=== PATIENT | male | born 1985 | race Caucasian/White ===

== ENCOUNTER 2016-11-08 14:36 | Emergency (ER) | payer BC ==
[2016-11-08] MEDS ORDERED: Ondansetron INJ* 2 MG/ML VIAL ONE (15:10)
[2016-11-08] MEDS ORDERED: LORazepam INJ* 2 MG/ML 1 ML VIAL IV PUSH ONE (15:28)
[2016-11-08] MEDS ORDERED: NS 0.9% 1000 ML* 1,000 ML IV ONE ×2 (15:30→17:01)
[2016-11-08 15:46] LABS: Hematocrit 44 % (42-52); Hemoglobin 14.8 g/dl (14.0-18.0); Mean Corpuscular HGB Conc 33 g/dl (31-36); Mean Corpuscular Hemoglobin 30 pg (27-31); Mean Corpuscular Volume 90 fL (80-94); Mean Platelet Volume 9 um3 (7.4-10.4); Red Blood Count 4.94 10^6/ul (4.0-5.4); Red Cell Distribution Width 13 % (10.5-15); White Blood Count 14.8 10^3/ul (3.5-10.8)
[2016-11-08] MEDS ORDERED: Ondansetron INJ* 2 MG/ML VIAL IV ONE ×2 (15:46→17:33)
[2016-11-08 16:00] LABS: ALT 16 U/L (7-52); AST 19 U/L (13-39); Albumin 4.9 g/dL (3.2-5.2); Alkaline Phosphatase 36 U/L (34-104); Anion Gap 10 mmol/L (2-11); BUN/Creatinine Ratio 14.4 (8-20); Blood Urea Nitrogen 15 mg/dL (6-24); C Reactive Protein 1.07 mg/L (< 5.00); CO2 Carbon Dioxide 25 mmol/L (22-32); Calcium 10.2 mg/dL (8.6-10.3); Chloride 108 mmol/L (101-111); EGFR African American 107.8 (>60); EGFR Non-African American 83.9 (>60); Globulin 2.6 g/dL (2-4); Glucose 125 mg/dL (70-100); Lipase < 10 U/L (11.0-82.0); Potassium 3.7 mmol/L (3.5-5.0); Sodium 143 mmol/L (133-145); Total Protein 7.5 g/dL (6.4-8.9)
[2016-11-08] MEDS ORDERED: Metoclopramide IV* 5 MG/ML 2 ML VIAL IV ONE (18:05)
[2016-11-08 19:02] VITALS: BP 134/78
--- NOTE | 2016-11-09 08:50 | ED ---
Ludwig Treadwell Alok, scribed for Fredy Gill MD on 11/08/16 at 1527 . GI/ HPI - HPI Summary HPI Summary: 31M presents to the ED with N/V since earlier today. Pt was given Zofran at [facility] [facility]. Pt states that he has had episodes like this before triggered by anxiety and notes anxiety currently due to stress with his business. Pt denies SOB, CP, cough, fever, or chills. PMHx includes h/o lyme disease and PSHx includes back surgery. - History of Current Complaint Chief Complaint: EDAbdPain Time Seen by Provider: 11/08/16 15:19 Stated Complaint: NAUSEA/VOMITING Hx Obtained From: Patient Onset/Duration: Started Hours Ago, Atraumatic, Still Present Timing: Constant Severity: Moderate Current Severity: Moderate Pain Intensity: 6 Associated Signs and Symptoms: Positive: Nausea, Vomiting, Other: - anxiety. Negative: Fever, Chills, Cough, Chest Pain Aggravating Factor(s): Activity - Stress at work Alleviating Factor(s): Medication - Zofran, ativan - Allergy/Home Medications Allergies/Adverse Reactions: Allergies Allergy/AdvReac Type Severity Reaction Status Date / Time Doxycycline Allergy Intermediate Rash Verified 11/08/16 15:57 PMH/Surg Hx/FS Hx/Imm Hx Endocrine/Hematology History: Denies: Hx Diabetes Cardiovascular History: Denies: Hx Congestive Heart Failure, Hx Hypertension, Hx Pacemaker/ICD History: Denies: Hx Renal Disease Sensory History: Denies: Hx Hearing Aid Psychiatric History: Denies: Hx Panic Disorder - Surgical History Surgery Procedure, Year, and Place: L4-5 [facility]-2005 Infectious Disease History: No Infectious Disease History: Denies: Traveled Outside the [place] in Last 30 Days - Family History Known Family History: Positive: Other - [place] - Social History Occupation: Employed Full-time Alcohol Use: None Substance Use Type: Reports: Marijuana Smoking Status (MU): Never Smoked Tobacco Review of Systems Negative: Fever, Chills Negative: Chest Pain Negative: Shortness Of Breath, Cough Positive: Vomiting, Nausea Positive: Anxious All Other Systems Reviewed And Are Negative: Yes Physical Exam - Summary Physical Exam Summary: VITAL SIGNS: Reviewed. GENERAL: Patient is a well-developed and nourished male who is lying comfortable in the stretcher. Patient is not in any acute respiratory distress. HEAD AND FACE: No signs of trauma. No ecchymosis, hematomas or skull depressions. No sinus tenderness. EYES: PERRLA, EOMI x 2, No injected conjunctiva, no nystagmus. EARS: Hearing grossly intact. Ear canals and tympanic membranes are within normal limits. MOUTH: Oropharynx within normal limits. NECK: Supple, trachea is midline, no adenopathy, no JVD, no carotid bruit, no c- spine tenderness, neck with full ROM. CHEST: Symmetric, no tenderness at palpation LUNGS: Clear to auscultation bilaterally. No wheezing or crackles. CVS: Regular rate and rhythm, S1 and S2 present, no murmurs or gallops appreciated. ABDOMEN: Soft, non-tender. No signs of distention. No rebound no guarding, and no masses palpated. Bowel sounds are normal. EXTREMITIES: FROM in all major joints, no edema, no cyanosis or clubbing. NEURO: Alert and oriented x 3. No acute neurological deficits. Speech is normal and follows commands. SKIN: Dry and warm Triage Information Reviewed: Yes Vital Signs On Initial Exam: Initial Vitals Temp Pulse Resp BP Pulse Ox 98.5 F 63 20 126/91 99 11/08/16 14:54 11/08/16 14:54 11/08/16 14:54 11/08/16 14:54 11/08/16 14:54 Vital Signs Reviewed: Yes Diagnostics - Vital Signs Vital Signs Temp Pulse Resp BP Pulse Ox 11/08/16 14:54 98.5 F 63 20 126/91 99 - Laboratory Lab Results: Lab Results 11/08/16 11/08/16 11/08/16 Range/Units 15:30 15:30 15:30 WBC 14.8 H (3.5-10.8) 10^3/ul RBC 4.94 (4.0-5.4) 10^6/ul Hgb 14.8 (14.0-18.0) g/dl Hct 44 (42-52) % MCV 90 (80-94) fL MCH 30 (27-31) pg MCHC 33 (31-36) g/dl RDW 13 (10.5-15) % Plt Count 214 (150-450) 10^3/ul MPV 9 (7.4-10.4) um3 Neut % (Auto) 91.2 H (38-83) % Lymph % (Auto) 6.4 L (25-47) % [place] % (Auto) 2.1 (1-9) % Eos % (Auto) 0.1 (0-6) % Baso % (Auto) 0.2 (0-2) % Absolute Neuts (auto) 13.5 H (1.5-7.7) 10^3/ul Absolute Lymphs (auto) 0.9 L (1.0-4.8) 10^3/ul Absolute Monos (auto) 0.3 (0-0.8) 10^3/ul Absolute Eos (auto) 0 (0-0.6) 10^3/ul Absolute Basos (auto) 0 (0-0.2) 10^3/ul Absolute Nucleated RBC 0 10^3/ul Nucleated RBC % 0 Sodium 143 (133-145) mmol/L Potassium 3.7 (3.5-5.0) mmol/L Chloride 108 (101-111) mmol/L Carbon Dioxide 25 (22-32) mmol/L Anion Gap 10 (2-11) mmol/L BUN 15 (6-24) mg/dL Creatinine 1.04 (0.67-1.17) mg/dL Est GFR ( Amer) 107.8 (>60) Est GFR (Non-Af Amer) 83.9 (>60) BUN/Creatinine Ratio 14.4 (8-20) Glucose 125 H (70-100) mg/dL Lactic Acid 1.8 (0.5-2.0) mmol/L Calcium 10.2 (8.6-10.3) mg/dL Total Bilirubin 0.60 (0.2-1.0) mg/dL AST 19 (13-39) U/L ALT 16 (7-52) U/L Alkaline Phosphatase 36 (34-104) U/L C-Reactive Protein 1.07 (< 5.00) mg/L Total Protein 7.5 (6.4-8.9) g/dL Albumin 4.9 (3.2-5.2) g/dL Globulin 2.6 (2-4) g/dL Albumin/Globulin Ratio 1.9 (1-3) Lipase < 10 L (11.0-82.0) U/L Result Diagrams: 11/08/16 15:30 11/08/16 15:30 Lab Statement: Any lab studies that have been ordered have been reviewed, and results considered in the medical decision making process. Re-Evaluation - Re-Evaluation First Eval Re-Evaluation Time: 18:05 Change: Unchanged Comment: Pt vomited once just now GIGU Course/Dx - Course Course Of Treatment: 31M presents to the ED with N/V since earlier today. Pt was given Zofran at [facility] [facility]. Pt states that he has had episodes like this before triggered by anxiety and notes anxiety currently due to stress with his business. Pt denies SOB, CP, cough, fever, or chills. PMHx includes h/o lyme disease and PSHx includes back surgery. Pt had one episode of vomiting in the ED, this was self induced by inserting his own fingers down his throat. Pt states that this was due to anxiety. Pt was given IV fluids for rehydration. Pt was given Reglan, Ativan, and Zofran. Pt was here for 4 hours and symptoms have improved. Pt will be discharged home with Zofran and Ativan. Decided against any imaging since pt had no abd pain or other complaints. - Diagnoses Differential Diagnoses - Male: Gastritis, Gastroenteritis (Bacterial), Vomiting Provider Diagnoses: Anxiety, Nausea, Vomiting Discharge - Discharge Plan Condition: Stable Disposition: HOME Prescriptions: Ondansetron TAB* [Zofran 4 MG Tab*] 4 mg PO Q6H PRN #10 tab PRN Reason: Vomiting hydrOXYzine HCL TAB* [Atarax 25 MG TAB*] 25 mg PO TID PRN #20 tab PRN Reason: Anxiety Patient Education Materials: Anxiety (ED), Acute Nausea and Vomiting (ED) Referrals: Sahara Suarez MD [Primary Care Provider] - The documentation as recorded by the Ludwig phoenix Alok accurately reflects the service I personally performed and the decisions made by , Fredy Gill MD.
== END 2016-11-08 19:10 | disposition home or self-care (01) ==
LOC: ED 14:36
DX: F41.9 Anxiety disorder, unspecified (principal); R11.2 Nausea with vomiting, unspecified
CPT/HCPCS: 36415; 80053; 83605; 83690; 85025; 86140; 96374; 96375; 99283; J2060; J2405

== ENCOUNTER 2016-11-08 23:19 | Emergency (ER) | payer BC ==
[2016-11-08 23:25] VITALS: BP 156/77
[2016-11-08] MEDS ORDERED: NS 0.9% 1000 ML* 1,000 ML IV ONE (23:45)
[2016-11-08] MEDS ORDERED: LORazepam INJ* 2 MG/ML 1 ML VIAL IV PUSH ONE (23:46)
[2016-11-08] MEDS ORDERED: Metoclopramide IV* 5 MG/ML 2 ML VIAL IV SLOW PU ONE (23:46)
--- NOTE | 2016-11-09 00:57 | ED ---
GI/ HPI - HPI Summary HPI Summary: 31M presents with nausea and vomiting today. He was seen here already and has labs drawn. He return as he took Benadryl, odt zofran at home without relief. He has history of intractable vomiting. He does stick his fingers down his throat to vomit. He denies doing this at this time. He states he made it home and started to vomit again. He denies any dysuria, hematuria, flank pain, frequency, urgency, diarrhea, constipation. He has had these episodes in the past. He was scoped in the past - History of Current Complaint Chief Complaint: EDNauseaVomitDiarrh Time Seen by Provider: 11/08/16 23:29 Stated Complaint: VOMITING Pain Intensity: 6 - Allergy/Home Medications Allergies/Adverse Reactions: Allergies Allergy/AdvReac Type Severity Reaction Status Date / Time Doxycycline Allergy Intermediate Rash Verified 11/08/16 15:57 PMH/Surg Hx/FS Hx/Imm Hx Endocrine/Hematology History: Denies: Hx Diabetes Cardiovascular History: Denies: Hx Congestive Heart Failure, Hx Hypertension, Hx Pacemaker/ICD History: Denies: Hx Renal Disease Sensory History: Denies: Hx Hearing Aid Psychiatric History: Denies: Hx Panic Disorder - Surgical History Surgery Procedure, Year, and Place: L4-5 [facility]-2005 Infectious Disease History: No Infectious Disease History: Denies: Traveled Outside the [place] in Last 30 Days - Social History Alcohol Use: None Substance Use Type: Reports: Marijuana Smoking Status (MU): Never Smoked Tobacco Review of Systems Negative: Fever Negative: Chest Pain Negative: Shortness Of Breath Positive: Vomiting, Nausea All Other Systems Reviewed And Are Negative: Yes Physical Exam Triage Information Reviewed: Yes Vital Signs On Initial Exam: Initial Vitals Temp Pulse Resp Pulse Ox 97.8 F 66 17 97 11/08/16 23:22 11/08/16 23:22 11/08/16 23:22 11/08/16 23:22 Vital Signs Reviewed: Yes Appearance: Positive: Well-Appearing Skin: Positive: Warm, Dry Head/Face: Positive: Normal Head/Face Inspection Eyes: Positive: Normal, Conjunctiva Clear ENT: Positive: Normal ENT inspection, Pharynx normal, TMs normal Respiratory/Lung Sounds: Positive: Clear to Auscultation, Breath Sounds Present Cardiovascular: Positive: Normal, RRR Abdomen Description: Positive: Nontender, Soft Bowel Sounds: Positive: Present - [place] Coma Scale Coma Scale Total: 15 Diagnostics - Vital Signs Vital Signs Temp Pulse Resp BP Pulse Ox 11/08/16 23:58 16 11/08/16 23:24 97.8 F 80 17 156/77 100 11/08/16 23:22 97.8 F 66 17 97 - Laboratory Lab Statement: Any lab studies that have been ordered have been reviewed, and results considered in the medical decision making process. Re-Evaluation - Re-Evaluation First Eval Re-Evaluation Time: 00:15 Change: Improved Comment: feeling a bit better but still nauseous Second Eval Re-Evaluation Time: 03:01 Change: Improved Comment: sleeping in room, no vomiting for 4 hours while in ED, ordered second dose of ativan but not given GIGU Course/Dx - Course Course Of Treatment: 31M presents with intractable vomiting today. He was seen here earlier and vomiting was controlled at time of d/c went home and vomiting returned. took ODT zofran and bendaryl without relief. has history of sticking fingers down throat to incite vomiting. labs done early and wbc 15 likely from vomiting. on exam nontender abdomen so do not see need to scan. gave reglan and ativan and patient feel asleep. patient did not vomit while in ED and was only hiccup which resolved after nap. told to follow up with primary. discussed may need to see GI. also discussed that is nausous every morning so should try OTC acid suppressor to see if GERD related? patient understands and agrees with plan - Diagnoses Differential Diagnoses - Male: Gastritis, Gastroenteritis (Bacterial), Vomiting Provider Diagnoses: Vomiting Discharge - Discharge Plan Condition: Good Disposition: HOME Patient Education Materials: Acute Nausea and Vomiting (ED) Referrals: Sahara Suarez MD [Primary Care Provider] - Additional Instructions: Take up to two tablets every 6 hours for nausea of zofran Try OTC acid suppressor such as Pepcid or Prilosec for a week to see if helps morning nausea Follow up with GI Follow up with primary within 5 days Return to ED if develop any new or worsening symptoms
[2016-11-09] MEDS ORDERED: LORazepam INJ* 2 MG/ML 1 ML VIAL IV PUSH ONE (01:20)
[2016-11-09] MEDS ORDERED: Ketorolac INJ* 30 MG/ML 1 ML VIAL IV PUSH ONE (01:20)
[2016-11-09] MEDS ORDERED: PROCHLORPERAZINE INJ 5 MG/ML 2 ML VIAL IM ONE (01:20)
[2016-11-09] MEDS ORDERED: NS 0.9% 1000 ML* 1,000 ML IV ONE (01:42)
[2016-11-09] MEDS ORDERED: LORazepam TAB(*) 1 MG PO ONE (02:57)
== END 2016-11-09 03:46 | disposition home or self-care (01) ==
LOC: ED 23:19
DX: R11.10 Vomiting, unspecified (principal); Z88.1 Allergy status to other antibiotic agents; F12.90 Cannabis use, unspecified, uncomplicated
CPT/HCPCS: 96361; 96372; 96374; 96375; 96376; 99282; A9270-GY; J2060

== ENCOUNTER 2016-11-10 14:43 | Emergency (ER) | payer BC ==
[2016-11-10 15:47] LABS: Hematocrit 40 % (42-52); Hemoglobin 13.7 g/dl (14.0-18.0); Mean Corpuscular HGB Conc 34 g/dl (31-36); Mean Corpuscular Hemoglobin 31 pg (27-31); Mean Corpuscular Volume 90 fL (80-94); Mean Platelet Volume 9 um3 (7.4-10.4); Red Blood Count 4.48 10^6/ul (4.0-5.4); Red Cell Distribution Width 13 % (10.5-15); White Blood Count 9.4 10^3/ul (3.5-10.8)
[2016-11-10 16:02] LABS: Albumin 4.6 g/dL (3.2-5.2); BUN/Creatinine Ratio 12.8 (8-20); Calcium 9.4 mg/dL (8.6-10.3); EGFR African American 121.2 (>60); EGFR Non-African American 94.2 (>60); Globulin 2.5 g/dL (2-4); Potassium 3.4 mmol/L (3.5-5.0); Total Bilirubin 0.7 mg/dL (0.2-1.0); Total Protein 7.1 g/dL (6.4-8.9)
[2016-11-10] MEDS ORDERED: NS 0.9% 1000 ML* 1,000 ML IV ONE (17:08)
[2016-11-10] MEDS ORDERED: Metoclopramide IV* 5 MG/ML 2 ML VIAL IV ONE (17:08)
[2016-11-10] MEDS ORDERED: LORazepam INJ* 2 MG/ML 1 ML VIAL IV ONE ×2 (17:08→19:27)
[2016-11-10] MEDS ORDERED: LORazepam INJ* 2 MG/ML 1 ML VIAL ONE (19:38)
[2016-11-10 19:52] VITALS: BP 143/81
--- NOTE | 2016-11-10 21:40 | ED ---
Rishi Treadwell Salem, scribed for Shabbir Proctor MD on 11/10/16 at 1717 . GI/ HPI - HPI Summary HPI Summary: Patient is a 31 y/o M who presents to the ED with vomiting since the last 2 days. He states that he has a hx of vomiting and stomach spasms (occurring every 6 months); however, the most recent one was 2.5 years ago. Pt denies abd pain, but states that abd is uncomfortable. Pt was seen in the ED 2 days ago and was DCd after receiving Zofran and Pepcid. Pt returned that night and was DCd the following morning. Family members state that pt left better when he was DCd yesterday. - History of Current Complaint Chief Complaint: EDAbdPain Time Seen by Provider: 11/10/16 16:54 Stated Complaint: NAUSEA & VOMITING/HERE ON THURSDAY Hx Obtained From: Patient Onset/Duration: Started Days Ago, Atraumatic, Still Present Timing: Intermittent Severity: Moderate Current Severity: Moderate Pain Intensity: 6 Location of Pain: Diffuse Associated Signs and Symptoms: Positive: Vomiting Aggravating Factor(s): Nothing Alleviating Factor(s): Nothing - Allergy/Home Medications Allergies/Adverse Reactions: Allergies Allergy/AdvReac Type Severity Reaction Status Date / Time Doxycycline Allergy Intermediate Rash Verified 11/08/16 15:57 PMH/Surg Hx/FS Hx/Imm Hx Endocrine/Hematology History: Denies: Hx Diabetes Cardiovascular History: Denies: Hx Congestive Heart Failure, Hx Hypertension, Hx Pacemaker/ICD History: Denies: Hx Renal Disease Sensory History: Denies: Hx Hearing Aid Psychiatric History: Denies: Hx Panic Disorder - Surgical History Surgery Procedure, Year, and Place: L4-5 [facility]-2005 Infectious Disease History: No Infectious Disease History: Denies: Traveled Outside the [place] in Last 30 Days - Family History Known Family History: Positive: Cardiac Disease - Social History Alcohol Use: None Hx Substance Use: Yes Substance Use Type: Reports: Marijuana Hx Tobacco Use: No Smoking Status (MU): Never Smoked Tobacco Review of Systems Negative: Fever Positive: Vomiting, Other - Uncomfortable abd. . Negative: Abdominal Pain All Other Systems Reviewed And Are Negative: Yes Physical Exam Triage Information Reviewed: Yes Vital Signs On Initial Exam: Initial Vitals Temp Pulse Resp BP Pulse Ox 97.4 F 65 17 153/94 100 11/10/16 14:47 11/10/16 14:47 11/10/16 14:47 11/10/16 14:47 11/10/16 14:47 Vital Signs Reviewed: Yes Appearance: Positive: Well-Appearing, No Pain Distress Skin: Positive: Warm, Skin Color Reflects Adequate Perfusion, Dry Head/Face: Positive: Normal Head/Face Inspection Eyes: Positive: Normal Neck: Positive: Supple, Nontender Respiratory/Lung Sounds: Positive: Clear to Auscultation, Breath Sounds Present Cardiovascular: Positive: RRR Abdomen Description: Positive: Nontender, Soft Bowel Sounds: Positive: Present Musculoskeletal: Positive: Normal Neurological: Positive: Normal Psychiatric: Positive: Normal, Affect/Mood Appropriate - [place] Coma Scale Coma Scale Total: 15 Diagnostics - Vital Signs Vital Signs Temp Pulse Resp BP Pulse Ox 11/10/16 16:44 98.2 F 72 20 164/93 98 11/10/16 16:43 164/93 11/10/16 14:47 97.4 F 65 17 153/94 100 - Laboratory Lab Results: Lab Results 11/10/16 11/10/16 11/10/16 Range/Units 15:36 15:36 15:36 WBC 9.4 (3.5-10.8) 10^3/ul RBC 4.48 (4.0-5.4) 10^6/ul Hgb 13.7 L (14.0-18.0) g/dl Hct 40 L (42-52) % MCV 90 (80-94) fL MCH 31 (27-31) pg MCHC 34 (31-36) g/dl RDW 13 (10.5-15) % Plt Count 184 (150-450) 10^3/ul MPV 9 (7.4-10.4) um3 Neut % (Auto) 78.9 (38-83) % Lymph % (Auto) 15.0 L (25-47) % [place] % (Auto) 5.0 (1-9) % Eos % (Auto) 0.2 (0-6) % Baso % (Auto) 0.9 (0-2) % Absolute Neuts (auto) 7.4 (1.5-7.7) 10^3/ul Absolute Lymphs (auto) 1.4 (1.0-4.8) 10^3/ul Absolute Monos (auto) 0.5 (0-0.8) 10^3/ul Absolute Eos (auto) 0 (0-0.6) 10^3/ul Absolute Basos (auto) 0.1 (0-0.2) 10^3/ul Absolute Nucleated RBC 0.01 10^3/ul Nucleated RBC % 0.1 Sodium 141 (133-145) mmol/L Potassium 3.4 L (3.5-5.0) mmol/L Chloride 109 (101-111) mmol/L Carbon Dioxide 25 (22-32) mmol/L Anion Gap 7 (2-11) mmol/L BUN 12 (6-24) mg/dL Creatinine 0.94 (0.67-1.17) mg/dL Est GFR ( Amer) 121.2 (>60) Est GFR (Non-Af Amer) 94.2 (>60) BUN/Creatinine Ratio 12.8 (8-20) Glucose 105 H (70-100) mg/dL Lactic Acid 1.8 (0.5-2.0) mmol/L Calcium 9.4 (8.6-10.3) mg/dL Total Bilirubin 0.70 (0.2-1.0) mg/dL AST 18 (13-39) U/L ALT 16 (7-52) U/L Alkaline Phosphatase 35 (34-104) U/L Total Protein 7.1 (6.4-8.9) g/dL Albumin 4.6 (3.2-5.2) g/dL Globulin 2.5 (2-4) g/dL Albumin/Globulin Ratio 1.8 (1-3) Result Diagrams: 11/10/16 15:36 11/10/16 15:36 Lab Statement: Any lab studies that have been ordered have been reviewed, and results considered in the medical decision making process. Re-Evaluation - Re-Evaluation First Eval Re-Evaluation Time: 19:06 Comment: Discussed plan. GIGU Course/Dx - Course Course Of Treatment: Mr. Coffman returns with a continuation of his nausea and vomiting. He had a lot of problems with this a few years ago but not for the last 2 1/2 years until 4-5 days ago and this is now his third visit. He believes he was treated with IV antibiotics the first time for lyme and that that is waht ultimately worked. He is also a marijuana user. I treated him symptomatically and referred him for F/U. - Diagnoses Provider Diagnoses: Nausea & vomiting Discharge - Discharge Plan Condition: Stable Disposition: HOME Prescriptions: LORazepam TAB(*) [Ativan TAB(*)] 1 mg PO Q6H PRN #20 tab MDD 4 PRN Reason: Pain Metoclopramide TAB* [Reglan TAB*] 10 mg PO Q6H #20 tab Patient Education Materials: Acute Nausea and Vomiting (ED) Referrals: Sahara Suarez MD [Primary Care Provider] - Additional Instructions: Please follow up with your primary care provider. The documentation as recorded by the Rishi phoenix Salem accurately reflects the service I personally performed and the decisions made by me, Shabbir Proctor MD.
== END 2016-11-10 19:53 | disposition home or self-care (01) ==
LOC: ED 14:43
DX: R11.2 Nausea with vomiting, unspecified (principal); Z88.1 Allergy status to other antibiotic agents; F12.90 Cannabis use, unspecified, uncomplicated
CPT/HCPCS: 36415; 80053; 83605; 85025; 86617; 86618; 96361; 96374; 96375; 96376; 99283; J2060

== ENCOUNTER 2017-05-30 10:26 | Emergency (ER) | payer BC ==
[2017-05-30] MEDS ORDERED: LORazepam TAB(*) 1 MG PO ONE (11:13)
[2017-05-30] MEDS ORDERED: NS 0.9% 1000 ML* 1,000 ML IV ONE (11:13)
--- NOTE | 2017-05-30 11:16 | ED ---
Nausea/Vomiting/Diarrhea HPI - HPI Summary HPI Summary: 32 male presents to the ED with vomiting since 7am today. He states that he has a hx of vomiting and stomach spasms (occurring every 6 months/1 year).Pt denies abd pain, but states that stomach is uncomfortable from vomiting, as it usually is when these episodes occur. Patient states ativan and reglan typically help him. He took zofran, reglan and hydroxyzine and compazine suppository this morning however did not have relief. Believes he vomited the medications up shortly after taking them. Denies any other pain or symptoms. No blood in vomit. Normal bowel movement and no urinary complaints. No fever/ chills. No other PMHx. Has been seen by GI for these symptoms of cyclic vomiting syndrome, in the past multiple times, given medications to take at home. Admits to smoking marijuana. Last use was last night. No other drug or alcohol use. No other complaints at this time. Last vomited 30 minutes ago with a total of ~ 6 episodes of vomiting since 0700. - History of Current Complaint Chief Complaint: EDNauseaVomitDiarrh Stated Complaint: n,v Time Seen by Provider: 05/30/17 11:11 Hx Obtained From: Patient Onset/Duration: Sudden Onset, Lasting Hours, Still Present Timing: Intermittent Episodes Lasting: - 6 episodes of vomiting Severity Initially: Mild Severity Currently: Mild Pain Intensity: 6 Pain Scale Used: 0-10 Numeric - with and from vomiting Location: Epigastric - stomach area LUQ Character: Cramping, Colicy Aggravating Factor(s): Nothing Alleviating Factor(s): Nothing Nausea/Vomiting Presence: Nauseated, Vomiting Vomiting Frequency: Every 15-60 minutes Nausea/Vomiting Duration: 0-12 hours Vomiting Characteristics: Retching Diarrhea Presence: No - Allergies/Home Medications Allergies/Adverse Reactions: Allergies Allergy/AdvReac Type Severity Reaction Status Date / Time Doxycycline Allergy Intermediate Rash Verified 11/08/16 15:57 PMH/Surg Hx/FS Hx/Imm Hx Endocrine/Hematology History: Denies: Hx Diabetes Cardiovascular History: Denies: Hx Congestive Heart Failure, Hx Hypertension, Hx Pacemaker/ICD History: Denies: Hx Renal Disease Sensory History: Denies: Hx Hearing Aid Psychiatric History: Denies: Hx Panic Disorder - Surgical History Surgery Procedure, Year, and Place: L4-5 [facility]-2006 - Immunization History Immunizations Up to Date: Yes Infectious Disease History: No Infectious Disease History: Denies: Traveled Outside the [place] in Last 30 Days - Family History Known Family History: Positive: Cardiac Disease - Social History Alcohol Use: None Hx Substance Use: Yes Substance Use Type: Reports: Marijuana Hx Tobacco Use: No Smoking Status (MU): Never Smoked Tobacco Review of Systems Constitutional: Negative Cardiovascular: Negative Respiratory: Negative Positive: Abdominal Pain, Vomiting, Nausea Neurological: Negative All Other Systems Reviewed And Are Negative: Yes Physical Exam Triage Information Reviewed: Yes Vital Signs On Initial Exam: Initial Vitals Temp Pulse Resp BP Pulse Ox 98.3 F 74 18 152/104 100 05/30/17 10:30 05/30/17 10:30 05/30/17 10:30 05/30/17 10:30 05/30/17 10:30 elevated BP noted Vital Signs Reviewed: Yes Appearance: Positive: No Pain Distress, Well-Nourished, Ill-Appearing - nauseated Skin: Positive: Warm, Skin Color Reflects Adequate Perfusion, Dry. Negative: Cold, Cyanosis @, Jaundiced, Pale, Erythema @ Head/Face: Positive: Scalp Eyes: Positive: Normal, EOMI, TRACEY, Conjunctiva Clear ENT: Positive: Hearing grossly normal, Pharynx normal Neck: Positive: Supple, Nontender Respiratory/Lung Sounds: Positive: Clear to Auscultation, Breath Sounds Present. Negative: Rales, Rhonchi, Wheezes Cardiovascular: Positive: Normal, RRR, Pulses are Symmetrical in both Upper and Lower Extremities. Negative: Murmur, Rub Abdomen Description: Positive: Nontender, No Organomegaly, Soft. Negative: Bruit, CVA Tenderness (R), CVA Tenderness (L), Distended, Guarding, McBurney's Point Tenderness, Peritoneal Signs, Pulsatile Mass Bowel Sounds: Positive: Present Musculoskeletal: Positive: Normal, Strength/ROM Intact Neurological: Positive: Normal, Sensory/Motor Intact, Alert, Oriented to Person Place, Time, CN Intact II-III, Reflexes Intact, NV Bundle Intact Distally, Normal Gait Diagnostics - Vital Signs Vital Signs Temp Pulse Resp BP Pulse Ox 05/30/17 10:30 98.3 F 74 18 152/104 100 - Laboratory Result Diagrams: 05/30/17 12:54 05/30/17 12:54 Lab Statement: Any lab studies that have been ordered have been reviewed, and results considered in the medical decision making process. Re-Evaluation - Re-Evaluation Second Eval Re-Evaluation Time: 14:00 Change: Improved - is feeling better after medication administered, ready to be d/c. will send home with meds. patient agrees and understands. no concern for other etiology at this time. normal labs First Eval Re-Evaluation Time: 13:00 Change: Unchanged - still not feeling well after first doses of medication Third Eval Re-Evaluation Time: 13:30 Change: Improved - ready to be d/c feeling better, able to tolerate po CTA and RRR on reeval at dispo Naus/Vom/Diarrhea Course/Dx - Course Course Of Treatment: basic labs obtained, unremarkable. given reglan, fluids, ativan did not have relief. given zofran and pepcid additionally and had relief. given last dose of ativan prior to discharge. patient will be sent home with medications to help if symptoms persist/return. no concern for other etiology at this time. aware of worsening signs and symptoms to watch out for. Follow up with PCP/GI. Increase fluid intake when able to keep foods down to prevent dehydration. - Differential Dx/Diagnosis Differential Diagnoses - Male: Vomiting, Other - intractable vomiting, cyclic vomiting syndrome Provider Diagnoses: cyclic vomiting syndrome Condition At Discharge: Stable Discharge - Discharge Plan Condition: Stable Disposition: HOME Prescriptions: LORazepam TAB(*) [Ativan 0.5 MG TAB (*)] 0.5 mg PO Q6H PRN #15 tab MDD 3 PRN Reason: Nausea Metoclopramide TAB* [Reglan TAB*] 5 mg PO Q6H PRN #15 tab PRN Reason: Nausea Ondansetron ODT TAB* [Zofran 4 MG Odt TAB*] 4 mg PO Q6H PRN #15 tab.odt PRN Reason: Nausea Patient Education Materials: Acute Nausea and Vomiting (ED) Referrals: Sahara Suarez MD [Primary Care Provider] - Additional Instructions: Take prescribed medication as needed for vomiting and nausea. Follow up with PCP and GI. Any new or worsening symptoms please seek medical attention promptly, as discussed. Increase fluid intake when able to keep down fluids. If unable for long period of time please seek medical attention.
[2017-05-30] MEDS ORDERED: LORazepam INJ* 2 MG/ML 1 ML VIAL IV PUSH ONE ×2 (11:31→14:14)
[2017-05-30] MEDS ORDERED: LORazepam INJ* 2 MG/ML 1 ML VIAL ONE (11:33)
[2017-05-30] MEDS ORDERED: Metoclopramide IV* 5 MG/ML 2 ML VIAL IV ONE (11:52)
[2017-05-30] MEDS ORDERED: Famotidine IV* 10 MG/ML 2 ML (20 mg) IV SLOW PU ONE (12:58)
[2017-05-30] MEDS ORDERED: Ondansetron INJ* 2 MG/ML VIAL IV ONE (12:58)
[2017-05-30 13:09] LABS: Hematocrit 40 % (42-52); Hemoglobin 13.8 g/dl (14.0-18.0); Mean Corpuscular HGB Conc 34 g/dl (31-36); Mean Corpuscular Hemoglobin 31 pg (27-31); Mean Corpuscular Volume 90 fL (80-94); Mean Platelet Volume 8 um3 (7.4-10.4); Platelet Count 172 10^3/ul (150-450); Red Blood Count 4.47 10^6/ul (4.0-5.4); Red Cell Distribution Width 13 % (10.5-15); White Blood Count 10.9 10^3/ul (3.5-10.8)
[2017-05-30 13:22] LABS: EGFR Non-African American 91.4 (>60)
[2017-05-30 15:05] VITALS: BP 154/80
== END 2017-05-30 15:24 | disposition home or self-care (01) ==
LOC: ED 10:26
DX: G43.A0 Cyclical vomiting, in migraine, not intractable (principal); Z88.3 Allergy status to other anti-infective agents
CPT/HCPCS: 36415; 80053; 85027; 86140; 87502; 96361; 96374; 96375; 96376; 99283; A9270-GY; J2060; J2405; J2765

== ENCOUNTER 2017-12-31 15:28 | Emergency (ER) | payer BC ==
[2017-12-31] MEDS ORDERED: NS 0.9% 1000 ML* 1,000 ML IV ONE ×2 (15:43→17:29)
[2017-12-31] MEDS ORDERED: Ondansetron INJ* 2 MG/ML VIAL IV ONE (15:43)
[2017-12-31] MEDS ORDERED: LORazepam INJ* 2 MG/ML 1 ML VIAL IV PUSH ONE ×3 (15:44→20:17)
[2017-12-31] MEDS ORDERED: Famotidine IV* 10 MG/ML 2 ML (20 mg) IV SLOW PU ONE (15:45)
[2017-12-31 16:20] LABS: ABS Basophils 0 10^3/ul (0-0.2); ABS Eosinophils 0 10^3/ul (0-0.6); ABS Lymphocytes 1.1 10^3/ul (1.0-4.8); ABS Monocytes 0.3 10^3/ul (0-0.8); ABS Neutrophils 12.5 10^3/ul (1.5-7.7); ABS Nucleated RBC 0 10^3/ul; Eosinophil % 0.2 % (0-6); Hematocrit 42 % (42-52); Hemoglobin 14.7 g/dl (14.0-18.0); Lymphocyte % 8.1 % (25-47); Mean Corpuscular HGB Conc 35 g/dl (31-36); Mean Corpuscular Hemoglobin 31 pg (27-31); Mean Corpuscular Volume 89 fL (80-94); Mean Platelet Volume 8.3 um3 (7.4-10.4); Nucleated Red Blood Cells % 0.1; Platelet Count 196 10^3/ul (150-450); Red Blood Count 4.68 10^6/ul (4.00-5.40); Red Cell Distribution Width 13 % (10.5-15); White Blood Count 14.1 10^3/ul (3.5-10.8)
[2017-12-31 16:36] LABS: EGFR Non-African American 97.2 (>60)
[2017-12-31] MEDS ORDERED: Metoclopramide IV* 5 MG/ML 2 ML VIAL IV ONE (17:28)
--- NOTE | 2017-12-31 17:28 | ED ---
Nausea/Vomiting/Diarrhea HPI - HPI Summary HPI Summary: patient is a 32-year-old male presenting to the ED with acute onset severe nausea and vomiting. He states this happens approximately every 6 months to one year. He is given Zofran, Ativan and fluids and usually resolves. He endorses sweats and chills, denies any fevers. He states he is otherwise healthy other than his nausea and vomiting. Endorses marijuana use. Symptoms began approximately 4 hours ago and he endorses 10 times emesis. - History of Current Complaint Chief Complaint: EDNauseaVomitDiarrh Stated Complaint: NAUSEA/VOMITING Time Seen by Provider: 12/31/17 15:39 Hx Obtained From: Patient Onset/Duration: Sudden Onset Timing: Constant Severity Initially: Moderate Severity Currently: Moderate Pain Intensity: 6 Pain Scale Used: 0-10 Numeric Aggravating Factor(s): Nothing Alleviating Factor(s): Nothing Vomiting Frequency: Every 15-60 minutes Nausea/Vomiting Duration: 0-12 hours Vomiting Characteristics: Retching - Allergies/Home Medications Allergies/Adverse Reactions: Allergies Allergy/AdvReac Type Severity Reaction Status Date / Time doxycycline Allergy Mild Rash Verified 12/31/17 15:33 PMH/Surg Hx/FS Hx/Imm Hx Previously Healthy: Yes Endocrine/Hematology History: Denies: Hx Diabetes Cardiovascular History: Denies: Hx Congestive Heart Failure, Hx Hypertension, Hx Pacemaker/ICD History: Denies: Hx Renal Disease Sensory History: Denies: Hx Hearing Aid Psychiatric History: Denies: Hx Panic Disorder - Surgical History Surgery Procedure, Year, and Place: L4-5 [facility]-2005 - Immunization History Hx Pertussis Vaccination: No Immunizations Up to Date: Unable to Obtain/Confirm Infectious Disease History: No Infectious Disease History: Denies: Traveled Outside the [place] in Last 30 Days - Family History Known Family History: Positive: Cardiac Disease - Social History Occupation: Employed Full-time Lives: With Family Alcohol Use: None Hx Substance Use: Yes Substance Use Type: Reports: Marijuana Hx Tobacco Use: No Smoking Status (MU): Never Smoked Tobacco Review of Systems Positive: Chills, Skin Diaphoresis. Negative: Fever Negative: Palpitations, Chest Pain Positive: Abdominal Pain, Vomiting, Nausea. Negative: Diarrhea Genitourinary: Negative Positive: no symptoms reported, see HPI Negative: Arthralgia, Myalgia Negative: Headache, Weakness Positive: Anxious All Other Systems Reviewed And Are Negative: Yes Physical Exam Triage Information Reviewed: Yes Vital Signs On Initial Exam: Initial Vitals Temp Pulse Resp BP Pulse Ox 95.9 F 70 16 134/88 97 12/31/17 15:30 12/31/17 15:30 12/31/17 15:30 12/31/17 15:30 12/31/17 15:30 Vital Signs Reviewed: Yes Appearance: Positive: Ill-Appearing Skin: Positive: Diaphoretic Head/Face: Positive: Normal Head/Face Inspection Eyes: Positive: EOMI, TRACEY Neck: Positive: Supple, No Lymphadenopathy Respiratory/Lung Sounds: Positive: Clear to Auscultation, Breath Sounds Present Cardiovascular: Positive: RRR, Pulses are Symmetrical in both Upper and Lower Extremities Musculoskeletal: Positive: Normal, Strength/ROM Intact Neurological: Positive: Speech Normal Psychiatric: Positive: Anxious AVPU Assessment: Alert Diagnostics - Vital Signs Vital Signs Temp Pulse Resp BP Pulse Ox 12/31/17 16:19 22 12/31/17 15:49 97.5 F 12/31/17 15:30 95.9 F 70 16 134/88 97 - Laboratory Lab Results: Lab Results 12/31/17 12/31/17 12/31/17 Range/Units 16:12 16:12 16:12 WBC 14.1 H (3.5-10.8) 10^3/ul RBC 4.68 (4.00-5.40) 10^6/ul Hgb 14.7 (14.0-18.0) g/dl Hct 42 (42-52) % MCV 89 (80-94) fL MCH 31 (27-31) pg MCHC 35 (31-36) g/dl RDW 13 (10.5-15) % Plt Count 196 (150-450) 10^3/ul MPV 8.3 (7.4-10.4) um3 Neut % (Auto) 89.2 H (38-83) % Lymph % (Auto) 8.1 L (25-47) % Fannin % (Auto) 2.2 (0-7) % Eos % (Auto) 0.2 (0-6) % Baso % (Auto) 0.3 (0-2) % Absolute Neuts (auto) 12.5 H (1.5-7.7) 10^3/ul Absolute Lymphs (auto) 1.1 (1.0-4.8) 10^3/ul Absolute Monos (auto) 0.3 (0-0.8) 10^3/ul Absolute Eos (auto) 0 (0-0.6) 10^3/ul Absolute Basos (auto) 0 (0-0.2) 10^3/ul Absolute Nucleated RBC 0 10^3/ul Nucleated RBC % 0.1 ESR 13 (0-14) mm/Hr Sodium 142 (135-145) mmol/L Potassium 3.7 (3.5-5.0) mmol/L Chloride 113 H (101-111) mmol/L Carbon Dioxide 20 L (22-32) mmol/L Anion Gap 9 (2-11) mmol/L BUN 23 (6-24) mg/dL Creatinine 0.91 (0.67-1.17) mg/dL Est GFR ( Amer) 117.6 (>60) Est GFR (Non-Af Amer) 97.2 (>60) BUN/Creatinine Ratio 25.3 H (8-20) Glucose 141 H (70-100) mg/dL Lactic Acid 1.4 (0.5-2.0) mmol/L Calcium 9.8 (8.6-10.3) mg/dL Total Bilirubin 0.50 (0.2-1.0) mg/dL AST 18 (13-39) U/L ALT 20 (7-52) U/L Alkaline Phosphatase 39 (34-104) U/L C-Reactive Protein < 1.00 (<8.01) mg/L Total Protein 7.2 (6.4-8.9) g/dL Albumin 4.7 (3.2-5.2) g/dL Globulin 2.5 (2-4) g/dL Albumin/Globulin Ratio 1.9 (1-3) Result Diagrams: 12/31/17 16:12 12/31/17 16:12 Lab Statement: Any lab studies that have been ordered have been reviewed, and results considered in the medical decision making process. Re-Evaluation - Re-Evaluation First Eval Change: Unchanged - continues to have n/v Naus/Vom/Diarrhea Course/Dx - Course Course Of Treatment: Patient is evaluated for acute nausea and vomiting which began approximate 4 hours ago. He is given Zofran, Ativan and fluids without much relief. Reglan and another 1mg Ativan is given along with 1 L fluids. - Differential Dx/Diagnosis Provider Diagnoses: Cyclical vomiting Discharge - Sign-Out/Discharge Documenting (check all that apply): Sign-Out Patient Signing out patient TO: Alesha Ann - pending improvement of symptoms - Discharge Plan Condition: Stable Referrals: Sahara Suarez MD [Primary Care Provider] - - Billing Disposition and Condition Condition: STABLE
[2017-12-31] MEDS ORDERED: PROCHLORPERAZINE INJ 5 MG/ML 2 ML VIAL IV ONE (19:14)
[2017-12-31 20:40] VITALS: BP 137/78
--- NOTE | 2017-12-31 21:26 | PN ---
Progress Note - Progress Note Date of Service: 12/31/17 Note: Patient was a sign out fromAnisha at shift change. Patient was given medication just prior to shift change and was waiting for symptom improvement. Patient given another dose of medication and symptoms had improved after a couple hours. No new symptoms or other concerns requiring further workup at this time. Patient was ready to be discharged home. Discharge: Home Condition: Improved Diagnosis: Cyclic vomiting syndrome Discharge instructions: Follow-up with primary care provider. Continue medications as prescribed at home as needed. Increase fluids. Aware worsening signs and symptoms watch out for.
== END 2017-12-31 20:39 | disposition home or self-care (01) ==
LOC: ED 15:28
DX: G43.A0 Cyclical vomiting, in migraine, not intractable (principal); Z88.3 Allergy status to other anti-infective agents
CPT/HCPCS: 36415; 80053; 83605; 85025; 85652; 86140; 96361; 96374; 96375; 96376; 99282; J0780; J2060; J2405; J2765

== ENCOUNTER 2019-08-02 05:09 | Observation (INO) | payer BC ==
[~2019-08-02 05:09] MED LIST: Buffered Lidocaine 1% SYRIN* 1 ML/SYRINGE INTRADERM ONE
--- OUTSIDE RECORDS SUMMARY | 2019-08-02 05:13 | XMS REPORT | Continuity of Care Document ---
:1985 External Reference #:[id number] Author Name Heber Montero MD Address [address] [place] [address] Problems Active Problems Provider Date Adult health examination Onset: 06/04/2010 Solar lentigo Onset: 04/09/2016 Anxiety disorder Onset: 07/28/2017 Depressive disorder Onset: 10/07/2013 Social History Type Date Description Comments Sex Unknown Tobacco Use Start: Unknown Patient has never smoked Smoking Status Reviewed: 07/06/19 Patient has never smoked Allergies, Adverse Reactions, Alerts Active Allergies Reaction Severity Comments Date Doxycycline rash, 01/28/2019 Medications Active Medications SIG Qnty Indications Ordering Date Provider Cyclobenzaprine HCL 1-2 tabs every 14tabs Heber Montero MD 06/10/2019 5mg night at Tablets bedtime as needed Prednisone 1 tab by mouth Unknown 50mg Tablets every morning History Medications Prednisone 2 daily for 3 10tabs Heber Montero MD 06/10/2019 - 20mg Tablets days then 1 daily 07/04/2019 for 4 days Immunizations Description No Information Available Vital Signs Date Vital Result Comment 07/06/2019 9:19am BP Systolic 144 mmHg BP Diastolic 92 mmHg Height 72 inches 6'0" Weight 196.00 lb Heart Rate 72 /min Body Temperature 97.1 F O2 % BldC Oximetry 98 % BMI (Body Mass Index) 26.6 kg/m2 06/10/2019 2:59pm BP Systolic 120 mmHg BP Diastolic 62 mmHg Height 72 inches 6'0" Weight 199.00 lb Heart Rate 65 /min Body Temperature 96.1 F O2 % BldC Oximetry 98 % BMI (Body Mass Index) 27.0 kg/m2 Results Description No Information Available Procedures Date Code Description Status 06/10/2019 56873 Brief Emotional/Behav Assessment W/ Scoring Doc Per Completed Standard Inst Medical Devices Description No Information Available Encounters Type Date Location Provider Dx Diagnosis Office Visit 06/10/2019 3:00p [facility] Heber Montero MD M54.32 Sciatica, left side Z13.31 Encounter for screening for depression Assessments Date Code Description Provider 07/06/2019 M54.16 Radiculopathy, lumbar region Heber Montero MD 06/10/2019 M54.32 Sciatica, left side Heber Montero MD 06/10/2019 Z13.31 Encounter for screening for depression Heber Montero MD Plan of Treatment No Information Available Functional Status Description No Information Available Mental Status Description No Information Available Referrals Description No Information Available
--- OUTSIDE RECORDS SUMMARY | 2019-08-02 05:13 | XMS REPORT | Continuity of Care Document ---
:1985 External Reference #:[id number] Author Name Heber Montero MD Address [address] [place] [address] Problems Active Problems Provider Date Solar lentigo Onset: 04/09/2016 Social History Type Date Description Comments Sex Unknown Tobacco Use Start: Unknown Patient has never smoked Smoking Status Reviewed: 06/10/19 Patient has never smoked Allergies, Adverse Reactions, Alerts Active Allergies Reaction Severity Comments Date Doxycycline rash, 01/28/2019 Medications Active Medications SIG Qnty Indications Ordering Date Provider Prednisone 2 daily for 3 10tabs Heber Montero MD 06/10/2019 20mg Tablets days then 1 daily for 4 days Cyclobenzaprine HCL 1-2 tabs every 14tabs Heber Montero MD 06/10/2019 5mg night at Tablets bedtime as needed Immunizations Description No Information Available Vital Signs Date Vital Result Comment 06/10/2019 2:59pm BP Systolic 120 mmHg BP Diastolic 62 mmHg Height 72 inches 6'0" Weight 199.00 lb Heart Rate 65 /min Body Temperature 96.1 F O2 % BldC Oximetry 98 % BMI (Body Mass Index) 27.0 kg/m2 09/21/2018 11:17am BP Systolic 110 mmHg Weight 202.00 lb Heart Rate 76 /min Body Temperature 97.0 F O2 % BldC Oximetry 97 % Results Description No Information Available Procedures Date Code Description Status 06/10/2019 78748 Brief Emotional/Behav Assessment W/ Scoring Doc Per Completed [facility] Medical Devices Description No Information Available Encounters Type Date Location Provider Dx Diagnosis Office Visit 06/10/2019 3:00p [facility] Heber Montero MD M54.32 Sciatica, left side Assessments Date Code Description Provider 06/10/2019 M54.32 Sciatica, left side Heber Montero MD Plan of Treatment 06/10/2019 - Heber Montero MDM54.32 Sciatica, left sideComments:L sided sciatica (pinched nerve, likely L5) Prednisone 20mg - two pills a day for 3 days, one pill a day for 4 days Heat, rest, time Do but don't overdo Cyclobenzaprine helps with muscle spasms andsleep - consider bedtime dose If not better in a week, will consider pain clinic. They need an MRIfirst so will have to get that. Follow up if not better OR urine/bowel issues - retention or incontinence - or foot drop (those are big red flags)AllNew Medication: Prednisone 20 mg - 2 daily for 3 days then 1 daily for 4 daysCyclobenzaprine HCL 5 mg - 1-2 tabs every night at bedtime as needed Functional Status Description No Information Available Mental Status Description No Information Available Referrals Description No Information Available
--- OUTSIDE RECORDS SUMMARY | 2019-08-02 05:13 | XMS REPORT | Continuity of Care Document ---
:1985 External Reference #:[id number] Author Name Nurse (transmitted by agent of provider Deepika King) Address [address] [place] [address] Problems Active Problems Provider Date Adult health examination Onset: 06/04/2010 Solar lentigo Onset: 04/09/2016 Anxiety disorder Onset: 07/28/2017 Depressive disorder Onset: 10/07/2013 Social History Type Date Description Comments Sex Unknown Tobacco Use Start: Unknown Patient has never smoked Smoking Status Reviewed: 07/25/19 Patient has never smoked Allergies, Adverse Reactions, Alerts Active Allergies Reaction Severity Comments Date Doxycycline rash, 01/28/2019 Medications Active Medications SIG Qnty Indications Ordering Provider Date Lisinopril 1 daily oral 90tabs Lelo Webster MD 07/25/2019 10mg Tablets Zofran take 1 tablet by Unknown 4mg Tablets mouth every 8 hours as needed for nausea History Medications Prednisone 2 daily for 3 10tabs Heber Montero MD 06/10/2019 - 20mg Tablets days then 1 daily 07/04/2019 for 4 days Cyclobenzaprine HCL 1-2 tabs every 14tabs Heber Montero MD 06/10/2019 - 5mg Tablets night at bedtime 07/24/2019 as needed Immunizations Description No Information Available Vital Signs Date Vital Result Comment 08/01/2019 3:10pm BP Systolic 126 mmHg left arm BP Diastolic 80 mmHg left arm 07/25/2019 3:04pm BP Systolic 148 mmHg BP Diastolic 94 mmHg BP Systolic Recheck 146 mmHg BP Diastolic Recheck 92 mmHg Height 70.25 inches 5'10.25" Weight 210.00 lb Heart Rate 104 /min Body Temperature 98.5 F O2 % BldC Oximetry 97 % BMI (Body Mass Index) 29.9 kg/m2 Results Test Acquired Date Facility Test Result H/L Range Note 18-Outside labs 07/21/2019 N2N/CCD Import C-Reactive <pending> Multiple choic Protein QN TSH Thyroid Stimulating Horm <pending> PSA Total <pending> CK Creatine Kinase Ser/Plasma <pending> Vitamin B12 Ser Mass/Vol <pending> Folate Serum <pending> Ferritin QN Serum/Plasma [facility] <pending> Iron QN Serum/Plasma [facility] <pending> Lyme AB W/RFX WB <pending> RPR Titer <pending> Hepatitis C AB Ser QN Eia <pending> HIV 1/2 Antibody Screen <pending> Hemoglobin A1c <pending> CBC W/Auto Differential 07/21/2019 N2N/CCD Import White Blood Count Ser 9.3 Auto CNT RBC Red Blood Count-Auto 4.95 Hemoglobin Blood 15.3 Hematocrit 45 35-45 MCV (Corpuscular Volume) 91 MCH (Corpuscular Hemoglobin) 31 MCHC (Corpuscular Hemog Conc) 34 RDW 13 Platelet Count Blood Auto CNT 224 MPV 8.4 Neutrophils 71.2 Fluid Bands <pending> Fluid Lymphocytes 20.3 Monocytes 6.6 Fluid Body Eosinophils Manual 1.4 Basophils % 0.[address] BLD Auto CT 0.0 Absolute Eosinophils 0.1 Absolute Lymphocytes Blood 1.9 Absolute Monocytes 0.6 Absolute Neutrophils Auto CNT 6.6 CMP 07/21/2019 N2N/CCD Import Albumin QN Serum/Plasma <pending> Alt - SGPT <pending> Calcium Ser/Plasma Mass/Vol 10.1 Carbon Dioxide QN Ser/Plas 29 Chloride Serum/Plasma 101 Creatinine QN Serum MCNC 0.94 Glucose Serum 77 Alkaline Phosphatase QN Ser/PL <pending> Potassium QN Ser/PL Mols/Vol 4.8 Protein Total QN Ser/Plas <pending> Sodium QN Ser/Plasma 138 Ast - Sgot <pending> BUN - Urea Nitrogen Ser/Plas 19 Bilirubin Total Mass/Vol <pending> GFR 92.4 GFR 111.8 Vitamin D 1,25 Total 07/21/2019 N2N/CCD Import Vitamin D 1,25 <pending> W/D2+D3 Dihydroxy 1,25-Dihydroxyvitamin D Serum <pending> Vitamin D 1,25 D2 QN S/PL MCNC <pending> CFM Urinalysis 07/21/2019 N2N/CCD Import Urine Specific [place] 1.008 Ua PH Test Strip 7.0 Ua Color yellow Ua Appearance clear Ua WBC Negative Ua Protein Negative Urine Glucose QL Negative Urine Ketones QL Test Strip Negative Urine Bilirubin TTL QL T-Strip Negative Urine Urobilinogen QN TS Negative Urine Nitrite QL TS Negative Ua Occult Blood Negative Lipid Panel 07/21/2019 N2N/CCD Import Cholesterol Total Mass/Vol <pending> Cholester/HDL Molecular Ratio <pending> High Density Lipoprotein <pending> LDL/HDL Mass Ratio Ser/PLS <pending> LDL Cholesterol Mass/Vol <pending> Triglycerides QN Ser/PLS MCNC <pending> Abo And RH 07/21/2019 N2N/CCD Import Misc Test - Put Test A Positive- Neg Group Blood In Order PT W/INR & Aptt 07/21/2019 N2N/CCD Import Z#Other Observations Inr-0.96 APTT-3 Procedures Date Code Description Status 06/10/2019 47970 Brief Emotional/Behav Assessment W/ Scoring Doc Per Completed Standard [facility] Medical Devices Description No Information Available Encounters Type Date Location Provider Dx Diagnosis Office Visit 07/25/2019 [facility] Lelo Webster MD Z01.818 Encounter for other 3:00p preprocedural examination I10 Essential (primary) hypertension M54.16 Radiculopathy, lumbar region Office Visit 06/10/2019 3:00p [facility] Heber Montero MD M54.32 Sciatica, left side Z13.31 Encounter for screening for depression Assessments Date Code Description Provider 07/25/2019 Z01.818 Encounter for other preprocedural examination Lelo Webster MD 07/25/2019 I10 Essential (primary) hypertension Lelo Webster MD 07/25/2019 M54.16 Radiculopathy, lumbar region Lelo Webster MD 07/06/2019 M54.16 Radiculopathy, lumbar region Heber Montero MD 06/10/2019 M54.32 Sciatica, left side Heber Montero MD 06/10/2019 Z13.31 Encounter for screening for depression Heber Montero MD Plan of Treatment No Information Available Functional Status Description No Information Available Mental Status Description No Information Available Referrals Description No Information Available
--- OUTSIDE RECORDS SUMMARY | 2019-08-02 05:13 | XMS REPORT | Continuity of Care Document ---
:1985 External Reference #:[id number] Author Name Lelo Webster MD Address [address] [place] [address] Problems Active Problems Provider Date Adult health [...] Available Vital Signs Date Vital Result Comment 07/25/2019 3:04pm BP Systolic 148 mmHg BP Diastolic 94 mmHg BP Systolic Recheck 146 mmHg BP Diastolic Recheck 92 mmHg Height 70.25 inches 5'10.25" Weight 210.00 lb Heart Rate 104 /min Body Temperature 98.5 F O2 % BldC Oximetry 97 % BMI (Body Mass Index) 29.9 kg/m2 07/06/2019 9:19am BP Systolic 144 mmHg BP Diastolic 92 mmHg Height 72 inches 6'0" Weight 196.00 lb Heart Rate 72 /min Body Temperature 97.1 F O2 % BldC Oximetry 98 % BMI (Body Mass Index) 26.6 kg/m2 Results Description No Information Available Procedures Date Code Description Status 06/10/2019 13215 Brief Emotional/Behav Assessment W/ Scoring Doc Per Completed Standard [employer] Medical Devices Description No Information Available Encounters Type Date Location Provider Dx Diagnosis Office Visit 06/10/2019 3:00p [facility] Lukas Montero MD M54.32 Sciatica, left side Z13.31 Encounter for screening for depression Assessments Date Code Description Provider 07/06/2019 M54.16 Radiculopathy, lumbar region Heber Montero MD 06/10/2019 M54.32 Sciatica, left side Heber Montero MD 06/10/2019 Z13.31 Encounter for screening for depression Heber Montero MD Plan of Treatment 07/25/2019 - Jamel Salter Medication:Lisinopril 10 mg - 1 daily oral Functional Status Description No Information Available Mental Status Description No Information Available Referrals Description No Information Available
--- OUTSIDE RECORDS SUMMARY | 2019-08-02 05:13 | XMS REPORT | Continuity of Care Document ---
:1985 External Reference #:[id number] Author Name Jennifer Reed MD (transmitted by agent of provider Gloria Smith) Address [address] [place] [address] Care Team Providers Name Role Phone Sahara Suarez MD - Family Care Team Information Die [employer] Medicine Problems Active Problems Provider Date Immunologic Walt Metzger M.D. Onset: 01/31/2014 Urinary complication Walt Metzger M.D. Onset: 12/20/2013 Sweating fever Walt Metzger M.D. Onset: 12/20/2013 Amnesia Walt Metzger M.D. Onset: 12/20/2013 Nausea and vomiting Walt Metzger M.D. Onset: 12/20/2013 Low back pain Johan Solano M.D. Onset: 07/04/2013 Social History Type Date Description Comments Sex Unknown ETOH Use Denies alcohol use Tobacco Use Start: Unknown End: Patient is a former smoker Unknown Recreational Drug Use Denies Drug Use Smoking Status Reviewed: 07/06/19 Patient is a former smoker Exercise Type/Frequency Does not exercise Allergies, Adverse Reactions, Alerts Active Allergies Reaction Severity Comments Date Doxycycline swollen puffy face Moderate 04/24/2011 Medications Active Medications SIG Qnty Indications Ordering Provider Date Zofran take 1 tab every Unknown 4mg Tablets 6 hours as needed for vomiting. Prednisolone 5ml by mouth Unknown 15mg/5ML daily for 1 Solution week, 2ml for 1 week Cyclobenzaprine HCL take 5mg at Unknown 5mg night before Tablets bedtime Immunizations Description No Information Available Vital Signs Date Vital Result Comment 07/06/2019 1:22pm Height 72 inches 6'0" Weight 204.25 lb Heart Rate 68 /min BP Systolic 132 mmHg BP Diastolic 74 mmHg Pain Level 0 BMI (Body Mass Index) 27.7 kg/m2 01/31/2014 3:08pm Height 71 inches 5'11" Weight 188.00 lb Heart Rate 54 /min BP Systolic 130 mmHg BP Diastolic 86 mmHg Pain Level 1 BMI (Body Mass Index) 26.2 kg/m2 Results Description No Information Available Procedures Description No Information Available Medical Devices Description No Information Available Encounters Description No Information Available Assessments Description No Information Available Plan of Treatment No Information Available Functional Status Description No Information Available Mental Status Description No Information Available Referrals Description No Information Available
[2019-08-02] MEDS ORDERED: ceFAZolin 2 GM PREMIX in ORs 2 GM/50 ML BAG ONE (05:55)
[2019-08-02] MEDS ORDERED: Gabapentin CAP(*) 300 MG ONE (05:55)
[2019-08-02] MEDS ORDERED: Buffered Lidocaine 1% SYRIN* 1 ML/SYRINGE INTRADERM ONE (05:55)
[2019-08-02] MEDS ORDERED: Acetaminophen TAB* 325 MG ONE (05:55)
[2019-08-02] MEDS ORDERED: Lactated Ringers 1000 ML Bag* 1,000 ML IV SCH (06:00)
[2019-08-02] MEDS ORDERED: Gabapentin CAP(*) 300 MG PO ONE (06:00)
[2019-08-02] MEDS ORDERED: Acetaminophen TAB* 325 MG PO ONE (06:00)
[2019-08-02] MEDS ORDERED: Bupivacaine 0.25% SDV* 30 ML ONE (06:56)
[2019-08-02] MEDS ORDERED: Bacitracin INJECTION* 50,000 UNITS ONE (06:56)
[2019-08-02] MEDS ORDERED: fentaNYL* 50 MCG/ML 5 ML VIAL (250 MCG VIAL) ONE (07:15)
[2019-08-02] MEDS ORDERED: Midazolam* 1 MG/ML 2 ML VIAL (2 MG) ONE (07:15)
[2019-08-02] MEDS ORDERED: Rocuronium* 10 MG/ML VIAL ONE ×2 (07:15→07:20)
[2019-08-02] MEDS ORDERED: Lidocaine 2% PF * 5 ML VIAL ONE (07:16)
[2019-08-02] MEDS ORDERED: Propofol* 10 MG/ML 20 ML BTL ONE (07:16)
[2019-08-02] MEDS ORDERED: Lidocaine 1% w EPI 1:200,000* SDV 30 ML VIAL ONE (07:20)
[2019-08-02] MEDS ORDERED: HYDROmorphone INJ1* 1 MG/ML SYRINGE IV PRN (07:28)
[2019-08-02] MEDS ORDERED: oxyCODONE TAB* 5 MG TAB PO PRN (07:28)
[2019-08-02] MEDS ORDERED: diPHENhydraMINE IV* 50 MG/ML 1 ml VIAL (BENADRYL) IV PRN (07:28)
[2019-08-02] MEDS ORDERED: PROCHLORPERAZINE INJ 5 MG/ML 2 ML VIAL IV PRN (07:28)
[2019-08-02] MEDS ORDERED: Naloxone* 0.4 MG/ML 1 ML VIAL IV PRN (07:28)
[2019-08-02] MEDS ORDERED: Dexamethasone IV* 4 MG/ML 1 ML (4 MG) ONE (08:21)
[2019-08-02] MEDS ORDERED: KETAMINE HCL* 50 MG/ML 10 ML VIAL ONE (08:23)
[2019-08-02] MEDS ORDERED: HYDROmorphone INJ1* 1 MG/ML SYRINGE ONE ×2 (08:31→11:02)
[2019-08-02] MEDS ORDERED: Glycopyrrolate IV* 0.2 MG/ML 1 ML VIAL ONE (09:45)
[2019-08-02] MEDS ORDERED: Ondansetron INJ* 2 MG/ML VIAL ONE (09:45)
[2019-08-02] MEDS ORDERED: Ketorolac INJ* 30 MG/ML 1 ML VIAL ONE (09:45)
[2019-08-02] MEDS ORDERED: Neostigmine Methylsulfate* 3 MG/3 ML SYRINGE ONE (09:46)
[2019-08-02] MEDS ORDERED: Magnesium Hydroxide LIQ* 30 ML UDC PO PRN (10:37)
[2019-08-02] MEDS ORDERED: Ondansetron INJ* 2 MG/ML VIAL IV PRN (10:37)
[2019-08-02] MEDS ORDERED: HYDROcodone/ACETAMIN 5-325 MG* 1 TAB PO PRN (10:37)
[2019-08-02] MEDS ORDERED: Acetaminophen TAB* 325 MG PO PRN (10:37)
[2019-08-02] MEDS ORDERED: PROCHLORPERAZINE INJ 5 MG/ML 2 ML VIAL ONE (10:41)
[2019-08-02] MEDS ORDERED: oxyCODONE/Acetamin 5/325 MG* TAB ONE (11:06)
[2019-08-02] MEDS ORDERED: HYDROcodone/ACETAMIN 5-325 MG* 1 TAB ONE (11:07)
[2019-08-02] MEDS: HYDROcodone/ACETAMIN 5-325 MG* 1 TAB PO PRN ×2 (11:07→16:31)
--- NOTE | 2019-08-02 12:05 | CONSULT ---
Consult Consult: August 02, 2019 INPATIENT PAIN CONSULTATION Sachin Coffman is a 34 year old male. He has a history of alcohol abuse and cocaine abuse. He has been sober for 8 years from alcohol and 10 years from cocaine. He does not attend AA or 12 Step meetings. He has a history of having had a left L5/S1 discectomy in August, by Dr. Solano for a disc herniation and some mild symptoms suggesting cauda equina syndrome. He did well after that. He fell out of a tree stand years later and had compression fractures of his thoracic vertebrae T8-11. Around 2018, he was helping his brother move a pool table up the stairs and injured his back. It radiated down his left leg, and there was numbness. The pain worsened with time. He saw Dr. Suarez when he developed numbness down his left leg. He was given a tapering dose of Prednisone which helped but the pain returned when the Prednisone was stopped. He was admitted OBV status when the pain was severe on July 04, 2019. He had an MRI of his lumbar spine. The MRI demonstrated a large left paracentral disc herniation at L4/5. He saw Dr. Reed. He was given Prednisone. He was admitted today and underwent a left L4/5 MIS discectomy. Post op, he got some IV dilaudid and 2 Rhine. I am asked to see him to assist in pain management. PAST MEDICAL HISTORY: As above, history of cocaine abuse, Soma abuse and alcohol abuse. Has been sober. Had an ulcer, L5/S1 discectomy Allergies Allergy/AdvReac Type Severity Reaction Status Date / Time doxycycline Allergy Mild Rash Verified 08/02/19 06:04 Current Medications Acetaminophen (Tylenol Tab*) 650 mg PO Q4H PRN PRN Reason: MILD PAIN or TEMP > 100.4 Hydrocodone Bitart/Acetaminophen (Rhine 5-325 Tab*) 1 tab PO Q4H PRN PRN Reason: moderate pain Hydrocodone Bitart/Acetaminophen (Rhine 5-325 Tab*) 2 tab PO Q4H PRN PRN Reason: PAIN - SEVERE Last Admin: 08/02/19 11:07 Dose: 2 tab Lactated Ringer's (Lactated Ringers 1000 Ml Bag*) 1,000 mls @ 125 mls/hr IV PER RATE MISSY Last Admin: 08/02/19 06:14 Dose: 125 mls/hr Magnesium Hydroxide (Milk Of Magnesia Liq*) 30 ml PO DAILY PRN PRN Reason: CONSTIPATION Ondansetron HCl (Zofran Inj*) 4 mg IV Q6H PRN PRN Reason: NAUSEA/VOMITING SOCIAL HISTORY: Non drinker for the past few years but former alcohol and cocaine abuse. Lives with in a 2 story house. Owns a cleaning company Vital Signs Temp Pulse Resp BP Pulse Ox 98.2 F 74 18 124/58 97 08/02/19 13:23 08/02/19 13:23 08/02/19 13:23 08/02/19 13:23 08/02/19 13:23 EXAM: GENERAL: No distress LUNGS: CLear HEART: Reg rhythm ABDOMEN: Soft EXTREMITIES: Normal tone in lower extremities NEUROLOGIC: Sensation intact. Muscle strength seems 5/5 lower extremities, dorsiflexion may be 4/5 on left ASSESSMENT: 1. Left L4/5 MIS discectomy 2. History of polysubstance abuse PLAN: I think his current pain management of Rhine should be sufficient. I will check back in in a few hours to make sure. I will add bowel medications and something for muscle spasms.
[2019-08-02] MEDS ORDERED: Methocarbamol TAB* 500 MG PO PRN (13:39)
[2019-08-02] MEDS ORDERED: Senna TAB 8.6 mg* TAB PO PRN (13:39)
[2019-08-02] MEDS: Docusate CAP* 100 MG PO SCH (21:19)
[2019-08-03] MEDS: HYDROcodone/ACETAMIN 5-325 MG* 1 TAB PO PRN ×4 (00:06→12:41)
--- NOTE | 2019-08-03 00:16 | CONS ---
HOSPITAL MEDICINE CONSULTATION REPORT: DATE OF CONSULT: 08/02/19 PROVIDER: Brittany Grove NP ATTENDING PHYSICIAN: Dr. Reed. CONSULTING PHYSICIAN: Dr. Jaye Doss (dictated by Brittany Grove NP). REASON FOR CONSULT: Co-management of care. HISTORY OF PRESENT ILLNESS: Mr. Coffman is a 34-year-old male with a past medical history significant for multiple back injuries, previous history of substance abuse and history of Lyme disease, who presented [place] [facility] [place] elective L4-L5 diskectomy with Dr. Reed. Please see dictated H and P from Dr. Reed for complete details. In brief, the patient had an injury to his back around Nabil time, had ongoing pain, developed left leg numbness. He had an MRI which showed a left paracentral disk herniation, so he saw Dr. Reed, who recommended L4-L5 MIS diskectomy due to his pain and numbness in his leg. Postoperatively, Mr. Coffman is drowsy, resting in his hospital bed. He is in no acute distress. He has had no recent illnesses. No fever, chills, chest pain, shortness of breath, no nausea, vomiting, diarrhea, or abdominal pain. Due to his recent surgery, hospital medicine was asked to help co-manage his care during this hospitalization. PAST MEDICAL HISTORY: Significant for: 1. Multiple back injuries. 2. History of L5-S1 diskectomy in 2010. 3. History of alcohol and cocaine abuse, last use 8 years ago. 4. History of Lyme's disease. PAST SURGICAL HISTORY: L5-S1 diskectomy. HOME MEDICATIONS: Include: 1. Lisinopril 10 mg p.o. daily 2. Zofran 4 mg every 6 hours as needed for nausea. 3. Naproxen 440 mg as needed. ALLERGIES: DOXYCYCLINE. FAMILY HISTORY: Mother with a history of hypertension. Mother with prediabetes. Father with esophageal cancer. SOCIAL HISTORY: No history of alcohol or illicit drug use. No smoking. The patient does have a remote history of alcohol abuse and cocaine abuse, but has been clean for 8 years. He is currently lives . He is a full code. REVIEW OF SYSTEMS: An 11-point review of systems was completed. All pertinent positives as mentioned in the HPI. PHYSICAL EXAM: General: At this time, Mr. Coffman is drowsy, resting in his hospital bed. He does wake to verbal stimuli. He is in no acute distress. Vital Signs: Blood pressure 107/60, heart rate 68, respirations 16, O2 saturation 94% on room air, temperature was 97.7. HEENT: Head is atraumatic, normocephalic. Eyes: EOMs are intact. Sclerae anicteric and not pale. Oral mucosa is moist. Neck is supple. Lungs are clear to auscultation bilaterally. No wheezes, rales, or rhonchi. Cardiac: S1, S2. Regular rate and rhythm. No murmurs, rubs, or gallops. Abdomen is soft and nontender. Bowel sounds are present x4. Extremities: He is able to move all 4 extremities. There is no clubbing or cyanosis. Pedal pulses are +2 bilaterally. Neurologic: He does wake to verbal stimuli. He answers question appropriate, but is drowsy. Skin: He does have a dressing that is dry and intact to his lower back. DIAGNOSTIC STUDIES/LAB DATA: CBC from 07/21/19, WBCs 9.3, RBCs 4.95, hemoglobin 15.3, hematocrit was 45, platelet count was 224. INR 0.96. Sodium 138, potassium 4.8, chloride 101, carbon dioxide was 29, anion gap was 8, BUN was 19, creatinine 0.94, glucose was 77. Total bilirubin 0.30, AST was 16, ALT was 17, alkaline phosphatase 38. Urine was within normal limits. IMPRESSION AND PLAN: Mr. Coffman is a 34-year-old male with a past medical history significant for chronic back pain/injury, history of L5-S1 diskectomy, history of substance abuse, who presented to [facility] an elective L4-[address] Reed. Our recommendations are as follows: 1. Status post lumbar diskectomy L4-L5, management per Neurosurgery. PT and OT per Neurosurgery. Pain management per Neurosurgery and Dr. Manuel. 2. Hypertension. The patient does have a remote history of hypertension. We will monitor his blood pressure and resume lisinopril as needed. At this time, I am going to hold this lisinopril as the blood pressure is 107/60. 3. FEN: He can have a regular diet. 4. Code status: He is a full code. 5. DVT prophylaxis: As per Orthopedics. We will place him on SCDs. TIME SPENT: Time spent on this consultation was 45 minutes, greater than half that time was spent at the bedside reviewing events leading thus far to his hospitalization, performing physical exam, and reviewing my plan of care. I have discussed this with my attending Dr. Jaye Doss; she is in agreement with my plan. BRITTANY GROVE, JUDI [id number]/[facility] #: [id number] TRUNG
--- NOTE | 2019-08-03 06:19 | OP ---
DATE OF OPERATION: 08/02/19 - ROOM #351 DATE OF : 87 SURGEON: Jennifer Reed MD JIG GRINDER: Jo Leonardo, ABHINAV. The case was done with the assistance of an [employer] MEDICINE SPECIALIST because of the complexity of the case. ANESTHESIA: General. PRE-OP DIAGNOSIS: Left L4-L5 herniated nucleus pulposus. POST-OP DIAGNOSIS: Left L4-L5 herniated nucleus pulposus. OPERATIVE PROCEDURE: The patient underwent left L4-L5 MIS discectomy with foraminotomy under intraoperative microscope. ESTIMATED BLOOD LOSS: 10 cc. COMPLICATIONS: None. INDICATIONS: The patient is a very pleasant 34-year-old gentleman with a history of previous left L5-S1 diskectomy many years ago by Dr. Crews for cauda equina. The patient presented with significant back pain and with left lower extremity with left foot drop and MRI revealed L4-5 disk herniation. The patient was offered the option of surgical intervention. After explaining the expectations, limitations and possible complications to the patient and his family including his and his mother who both work in [employer] [facility] [employer] with complications including, but not limited to bleeding, infection, risk of injury to adjacent structures, coma, paralysis, , need for additional procedures, anesthesia risks, stroke, blindness, cancer, instability, spondylolisthesis, recurrence of disease, deep venous thrombosis, pulmonary embolism, injury to the trachea and esophagus, spinal fluid leak, injury, loss of bladder or bowel control, postoperative hematoma formation, infection, need for prolonged ICU stay, prolonged hospitalization, prolonged rehabilitation, need for tracheostomy or gastrostomy and anesthesia risks. The patient was agreeable to proceed with surgery and informed consent was obtained. The patient understood that his condition may not improve and in fact may get worse after surgery and that he may need to have additional procedures in the future. He also understood that the operative plan may be modified according to intraoperative findings and conditions and that the procedure may be abandoned or done in more than one stages. He also understood that he may require prolonged ICU stay, prolonged hospitalization and prolonged rehabilitation or multiple procedures in the future. DESCRIPTION OF PROCEDURE: The patient was brought to the operating room and he was placed under general anesthesia by the anesthesia team. He was carefully positioned prone on a Mendoza frame on the Earl table and all bony prominences were meticulously padded. His skin was prepped and draped in a standard fashion. After appropriate surgical pause and patient identification, a small left paramedian incision over the L4-5 disk space were marked with the skin with the assistance of intraoperative fluoroscopic imaging. The skin was infiltrated with local anesthetic and #10 surgical blade was used to incise the skin. Incision was carried down through the subcutaneous tissue and dorsal fascia with use of Bovie cautery. Then over a series of dilators, the [employer] tubular retractor system was introduced into the field and the operative microscope was brought into the field. The left L4 gary-lamina was readily exposed as well as the base of the spinous process, the pars and medial border of L4-5 facet. A high-speed drill and Kerrison punch was used to perform a laminotomy and minimal medial facetectomy. After reflection of the ligamentum flavum, the lateral border of the thecal sac as well as the L5 nerve root was readily identified underneath significant disk bulging that was identified under the posterior longitudinal ligament as expected from the preoperative imaging. After gently retracting medially the thecal sac and the nerve root, a small opening over the posterior longitudinal ligament was made with a #11 surgical blade and two very large disk fragments were gently removed. Then, the diskectomy was completed after incising the annulus fibrosus with #11 surgical blade and use of pituitary rongeurs. A second time out was performed with a second intraoperative imaging confirming the appropriate surgical level. The diskectomy was completed. The disk was found to be quite degenerated. After completion of the diskectomy, a foraminotomy was performed with Kerrison punches. After completion of the diskectomy and foraminotomy, the thecal sac and nerve root was found to be . After copious irrigation and meticulous hemostasis and meticulous inspection, the tubular retractor was gently removed. After confirmation of meticulous hemostasis and copious irrigation and meticulous inspection, the wound was closed by layers with 0 interrupted Vicryl sutures to approximate the dorsal fascia and 2-0 inverted Vicryl sutures to approximate the subcutaneous tissues. The skin was then covered with Dermabond and sterile dressing. At the end of the procedure, all counts were reported to be correct. The patient remained hemodynamically stable throughout the case. She was then turned supine, extubated and was transferred to Recovery in excellent condition. [id number]/[facility] #: [id number] [facility]PITALTapan
[2019-08-03] MEDS: Docusate CAP* 100 MG PO SCH (08:24)
--- NOTE | 2019-08-03 10:22 | PN ---
Progress Note - Progress Note Date of Service: 08/03/19 SOAP: Subjective: [] No events ON. Tolerated procedure well yesterday. Preop LLE pain resolved. Ambulates, Tolerates PO well, Voids. Would like to go home. Objective: []VSS, Afebrile Wound s,c,d AAOx3, TRACEY, CN II-XII grossly intact Motor 5/5 all extremities Sensory grossly intact to light touch Assessment: []34 yom POD#1 Left L4-5 MIS discectomy Plan: []Monitor VS, Neurochecks Encourage ambulation DC home today. DC instructions were given. No lifting, No bending, No driving Keep incision dry. May shower. No baths Follow up in 7-10 days in office for would check. Appreciate IM, Dr Manuel's care. Farshad Weiner MD
[2019-08-03 11:38] VITALS: BP 139/73
[2019-08-03] MEDS ORDERED: Lisinopril TAB* 10 MG PO SCH (18:00)
--- NOTE | 2019-08-04 06:24 | DS ---
CC: Dr. Luz Maria Cobos; Dr. Jennifer Reed * DISCHARGE SUMMARY: DATE OF ADMISSION: 08/02/19 DATE OF DISCHARGE: 08/03/19 PRIMARY CARE PROVIDER: Luz Maria Cobos DO OTHER PROVIDER: Jennifer Reed MD ATTENDING PHYSICIAN: Ericka Reid MD * (dictated by SHIRA Beach) PRIMARY DIAGNOSIS: Left L4-5 herniated nucleus pulposus status post L4-L5 MIS diskectomy with foraminotomy performed by Dr. Reed on 08/02/19. SECONDARY DIAGNOSES: 1. Hypertension. 2. History of alcohol and cocaine abuse, last use 8 years ago. 3. History of Lyme disease. 4. History of L5-S1 diskectomy in 2000. DISCHARGE MEDICATIONS: Home medications: 1. Lisinopril 10 mg p.o. daily. 2. Ondansetron 4 mg p.o. q.6 hours p.r.n. nausea. New home medications: 1. Docusate 100 mg p.o. b.i.d. p.r.n. constipation. 2. Senna 2 tabs p.o. at bedtime p.r.n. constipation. 3. Hydrocodone/acetaminophen 5/325 one to two tabs p.o. q.4 hours p.r.n., MDD 12. 4. Methocarbamol 750 mg p.o. t.i.d. p.r.n. muscle spasm. PROCEDURES WHILE IN THE HOSPITAL: Left L4-L5 MIS diskectomy with foraminotomy, performed by Dr. Reed on 08/02/19. HISTORY OF PRESENT ILLNESS/HOSPITAL COURSE: Mr. Coffman is a 34-year-old male with a past medical history of hypertension and multiple back injuries, who [place] [facility] [place] L4-L5 diskectomy with Dr. Reed on . For full and complete details, please see the history and physical dictated by Brittany Grove, but in short, the patient reports a back injury around Nabil resulting in left leg numbness. He therefore opted to have L4-L5 diskectomy. This procedure was performed on 08/02/19. He was admitted overnight for observation. The following day, Dr. Reed was encouraged by his progress and recommended discharge home. His activities were limited to no lifting, no bending, no driving. He was given instructions about wound management and instructions to follow up with Dr. Reed in 7 to 10 days. He reportedly was ambulating the halls without difficulty. He states that his back pain is worse with movement, but that he has good pain control with Percocet. He continues to have left paresthesias at the bottom of his left foot. He denies weakness. He has not had a bowel movement today, but denies saddle anesthesia, loss of bowel or bladder function. He denies chest pain, shortness of breath, cough, fevers, chills, abdominal pain, nausea, vomiting, diarrhea, or constipation. Mr. Coffman is stable for discharge home. PHYSICAL EXAMINATION: Vital Signs: Temperature 98.1 oral, heart rate 80, and respiratory rate 16, oxygen saturation 97% on room air, blood pressure 139/73. General: Mr. Coffman is a well developed, well nourished, overweight, young white male who is sitting up in the bed, he appears to be in no acute distress, he is pleasant and cooperative and appropriate. HEENT: PERRL. EOMI. Nonicteric sclerae. Hearing is grossly intact. Oral mucous membranes are moist. There are no lesions. Pharynx is clear. Tongue is at midline. Palate elevates symmetrically. Cardiovascular: Regular rate and rhythm with S1, S2 present. No murmurs, rubs, clicks, or gallops. There is no JVD or peripheral edema. Pulmonary: Symmetrical chest expansion without use of accessory muscles. Clear to auscultation bilaterally without rhonchi, wheezes, rales. Abdomen: Bowel sounds in all quadrants. Soft, nontender to palpation. Musculoskeletal: Full range of motion without pain or deformities. Neuro: The patient is awake. He is alert and oriented x3. Cranial nerves II through XII are grossly intact. He moves all extremities with motor strength 5/5 bilaterally in upper and lower extremities. Sensation is intact to bilateral lower extremities. He has a steady gait without impairment. DISCHARGE PLAN: Mr. Coffman will be discharged to home. CONDITION: Good. DIET: Resume home diet. ACTIVITY: No bending, lifting, driving. WOUND CARE: 1. Keep incision dry. 2. May shower, no bathing. EDUCATION: 1. Follow up with primary care provider in 4 to 7 days. 2. Follow up with Dr. Reed in 7 to 10 days. 3. Return to the ER or nearest hospital for increased pain, erythema, or drainage from incision site, fever, chills, sweats, loss of bowel or bladder function, saddle anesthesia. Return for chest pain, shortness of breath, dizziness, lightheadedness, loss of consciousness, or any other worrisome signs or symptoms. This is a summarized report of a complex medical history and hospital stay. For further details, please see the entire medical record. TIME SPENT: Approximately 30 minutes were spent on this discharge, greater than half that time was spent [id number] with the patient discussing discharge plans and instructions. SHIRA SAINI [id number]/[facility] #: [id number] MTDD
== END 2019-08-03 13:10 | disposition home or self-care (01) ==
LOC: AA 05:09 → INTOOBSV 05:09 → SSU 10:37
PROVIDERS: ADMIT Neurological Surgery; ATTEND Neurological Surgery
DX: M51.26 Other intervertebral disc displacement, lumbar region (principal); M51.16 Intervertebral disc disorders with radiculopathy, lumbar region; I10 Essential (primary) hypertension; Z86.19 Personal history of other infectious and parasitic diseases; Z86.59 Personal history of other mental and behavioral disorders; Z79.899 Other long term (current) drug therapy; Z87.39 Personal history of other diseases of the musculoskeletal system and connective tissue
CPT/HCPCS: 76000; A9270-GY; G0378; J0690; J0780; J1100; J1170; J1885; J2001; J2250; J2405; J2704; J2710; J3010; J3490

== ENCOUNTER 2021-01-24 23:32 | Observation (INO) ==
[2021-01-25] MEDS ORDERED: Pantoprazole VIAL 40 MG VIAL IV ONE (02:14)
[2021-01-25] MEDS ORDERED: NS 0.9% 1000 ml BAG 2,000 ML IV ONE (02:14)
[2021-01-25] MEDS ORDERED: Prochlorperazine 5 mg/ml 2 ml VIAL (10 mg) IV ONE ×2 (02:16→08:32)
[2021-01-25] MEDS ORDERED: diPHENhydraMINE IV 50 MG/ML 1 ml VIAL (BENADRYL) IV ONE (02:16)
[2021-01-25] MEDS ORDERED: SUMAtriptan Subcut 6 MG/0.5 ML VIAL SUBCUT ONE (02:16)
[2021-01-25] MEDS ORDERED: Ondansetron 4 mg VIAL 2 MG/ML 2 ml VIAL IV ONE (04:31)
[2021-01-25 05:22] LABS: ABS Lymphocytes 0.9 10^3/ul (1.0-4.8); ABS Monocytes 0.4 10^3/ul (0-0.8); ABS Neutrophils 6.5 10^3/ul (1.5-7.7); Hematocrit 35 % (42-52); Hemoglobin 12.3 g/dL (14.0-18.0); Lymphocyte % 11.2 %; Mean Corpuscular HGB Conc 35 g/dL (31-36); Mean Corpuscular Hemoglobin 32 pg (27-31); Mean Corpuscular Volume 91 fL (80-94); Mean Platelet Volume 8.4 fL (7.4-10.4); Platelet Count 173 10^3/uL (150-450); Red Blood Count 3.85 10^6 /uL (4.18-5.48); Red Cell Distribution Width 12 % (10-15); White Blood Count 7.8 10^3/uL (3.5-10.8)
[2021-01-25 05:39] LABS: Albumin 4.2 g/dL (3.2-5.2); Albumin/Globulin Ratio 1.8 (1-3); Calcium 8.2 mg/dL (8.6-10.3); EGFR African American 111.2 (>60); EGFR Non-African American 91.9 (>60); Globulin 2.3 g/dL (2-4); Potassium 3.3 mmol/L (3.5-5.0); Total Bilirubin 0.6 mg/dL (0.2-1.0); Total Protein 6.5 g/dL (6.4-8.9)
[2021-01-25] MEDS ORDERED: Iohexol 300 (CONTRAST) 10 ML SDV IV ONE (07:07)
[2021-01-25] MEDS ORDERED: Prochlorperazine 5 mg/ml 2 ml VIAL (10 mg) IV PRN (09:01)
[2021-01-25] MEDS ORDERED: Lorazepam PYXIS KEY PRN (09:10)
[2021-01-25] MEDS: Diclofenac Sod EC 25 mg TAB PO SCH ×2 (10:13→10:21)
[2021-01-25] MEDS ORDERED: Lactated Ringers 1000 ml BAG 1,000 ML IV SCH (11:00)
[2021-01-25] MEDS: KCL 20 MEQ/100 ML IVPREMIX 20 MEQ/100 ML BAG IV SCH ×2 (12:15→16:32)
[2021-01-25] MEDS: LORazepam 2 mg VIAL 1 ml IV PUSH PRN ×2 (16:34→22:39)
[2021-01-26] MEDS: Diclofenac Sod EC 25 mg TAB PO SCH ×2 (02:06→09:09)
[2021-01-26 09:16] LABS: Calcium 8.9 mg/dL (8.6-10.3); EGFR African American 108.5 (>60); EGFR Non-African American 89.7 (>60); Potassium 3.3 mmol/L (3.5-5.0)
[2021-01-26] MEDS ORDERED: Potassium Chlor 20 meq TAB.ER PO ONE (11:15)
[2021-01-26 11:59] VITALS: BP 134/81
== END 2021-01-26 15:30 | disposition home or self-care (01) ==
LOC: ED 23:32 → MED 23:32
PROVIDERS: ADMIT Internal Medicine; ATTEND Internal Medicine

== ENCOUNTER 2021-01-27 13:31 | Observation (INO) ==
[2021-01-27] MEDS ORDERED: Droperidol 5 MG/2 ML 2 ML VIAL IV ONE ×2 (14:28→16:24)
[2021-01-27] MEDS ORDERED: Lactated Ringers 1000 ml BAG 1,000 ML IV ONE ×3 (14:29→21:08)
[2021-01-27] MEDS ORDERED: Metoclopramide 5 MG/ML VIAL (10 mg) IV SLOW PU ONE (14:34)
[2021-01-27] MEDS ORDERED: diPHENhydraMINE IV 50 MG/ML 1 ml VIAL (BENADRYL) IV ONE (14:34)
[2021-01-27 15:44] LABS: ABS Lymphocytes 1.1 10^3/ul (1.0-4.8); ABS Monocytes 0.5 10^3/ul (0-0.8); ABS Neutrophils 9.1 10^3/ul (1.5-7.7); Eosinophil % 0.2 %; Hematocrit 40 % (42-52); Hemoglobin 14.1 g/dL (14.0-18.0); Lymphocyte % 9.9 %; Mean Corpuscular HGB Conc 35 g/dL (31-36); Mean Corpuscular Hemoglobin 32 pg (27-31); Mean Corpuscular Volume 90 fL (80-94); Mean Platelet Volume 8.7 fL (7.4-10.4); Platelet Count 194 10^3/uL (150-450); Red Blood Count 4.49 10^6 /uL (4.18-5.48); Red Cell Distribution Width 12 % (10-15); White Blood Count 10.7 10^3/uL (3.5-10.8)
[2021-01-27 15:57] LABS: Albumin 5.2 g/dL (3.2-5.2); Albumin/Globulin Ratio 1.8 (1-3); Calcium 9.9 mg/dL (8.6-10.3); EGFR African American 112.5 (>60); Globulin 2.9 g/dL (2-4); Magnesium 2.1 mg/dL (1.9-2.7); Potassium 3.5 mmol/L (3.5-5.0); Total Protein 8.1 g/dL (6.4-8.9)
[2021-01-27] MEDS ORDERED: Prochlorperazine 5 mg/ml 2 ml VIAL (10 mg) IV ONE (16:21)
[2021-01-27 21:22] LABS: Urine Appearance Clear; Urine Bilirubin Negative (Negative); Urine Blood Negative (Negative); Urine Color Straw; Urine Glucose Negative (Negative); Urine Ketones 2+ (Negative); Urine Nitrite Negative (Negative); Urine Protein Negative (Negative); Urine Specific Gravity 1.005 (1.002-1.030); Urine Urobilinogen Negative (Negative)
[2021-01-28] MEDS ORDERED: Metoclopramide 5 MG/ML VIAL (10 mg) IV SLOW PU ONE (09:19)
[2021-01-28] MEDS ORDERED: diPHENhydraMINE IV 50 MG/ML 1 ml VIAL (BENADRYL) IV PRN (09:47)
[2021-01-28] MEDS ORDERED: LORazepam 2 mg VIAL 1 ml IV PUSH ONE (09:51)
[2021-01-28] MEDS ORDERED: Lorazepam PYXIS KEY PRN (09:51)
[2021-01-28] MEDS: Ondansetron 4 mg VIAL 2 MG/ML 2 ml VIAL IV PRN ×3 (13:15→20:06)
[2021-01-28] MEDS: Metoclopramide 5 MG/ML VIAL (10 mg) IV PRN ×2 (15:37→21:25)
[2021-01-29] MEDS: Metoclopramide 5 MG/ML VIAL (10 mg) IV PRN (06:14)
[2021-01-29 06:21] LABS: Calcium 8.9 mg/dL (8.6-10.3); EGFR African American 108.5 (>60); EGFR Non-African American 89.7 (>60); Potassium 3.6 mmol/L (3.5-5.0)
[2021-01-29 06:24] LABS: ABS Eosinophils 0.1 10^3/ul (0-0.6); ABS Lymphocytes 2.3 10^3/ul (1.0-4.8); ABS Monocytes 0.6 10^3/ul (0-0.8); ABS Neutrophils 4.6 10^3/ul (1.5-7.7); Eosinophil % 1.3 %; Hematocrit 35 % (42-52); Hemoglobin 12.6 g/dL (14.0-18.0); Lymphocyte % 30.4 %; Mean Corpuscular HGB Conc 36 g/dL (31-36); Mean Corpuscular Hemoglobin 32 pg (27-31); Mean Corpuscular Volume 90 fL (80-94); Mean Platelet Volume 8.6 fL (7.4-10.4); Platelet Count 184 10^3/uL (150-450); Red Blood Count 3.93 10^6 /uL (4.18-5.48); Red Cell Distribution Width 12 % (10-15); White Blood Count 7.6 10^3/uL (3.5-10.8)
[2021-01-29 07:41] VITALS: BP 146/70
== END 2021-01-29 11:30 | disposition home or self-care (01) ==
LOC: ED 13:31 → SUATTDRO 20:02 → INTOOBSV 20:02 → MEDTELE 20:02
PROVIDERS: ADMIT Internal Medicine; ATTEND Internal Medicine